=== PATIENT | male | born 1975 | race Caucasian/White ===

== ENCOUNTER 2017-04-16 12:30 | Outpatient (RCR) | payer BC ==
[~2017-04-16 12:30] MED LIST: NO HOME MEDICATIONS
== END 2017-06-13 | disposition home or self-care (01) ==
LOC: MKS.ESL.PT
DX: M25.561 Pain in right knee (principal)

== ENCOUNTER 2020-05-12 08:15 | Outpatient (RCR) | payer BC | END 2020-05-17 | LOC: MKS.ESL.PT | DX: M25.521 Pain in right elbow (principal); M25.522 Pain in left elbow ==

== ENCOUNTER 2020-06-15 11:15 | Outpatient (RCR) | payer BC | END 2020-08-10 14:02 | disposition home or self-care (01) | LOC: MKS.ESL.PT 11:15 | DX: M25.521 Pain in right elbow (principal); M25.522 Pain in left elbow ==